=== PATIENT | male | born 1985 | race Two or more races ===

== ENCOUNTER 2020-01-06 22:34 | Emergency (ER) | payer OTHER ==
[~2020-01-06] VITALS: Ht 167.6 cm; Wt 68.0 kg
[2020-01-06] MEDS ORDERED: LORazepam Inj 2mg/ml 1ml IV ONE (22:45)
[2020-01-06 22:46] VITALS: BP 150/100
--- NOTE | 2020-01-06 22:46 | NUR ---
ED Nurse Note: pt neyda from [place] with [employer] CO t umping off roof of [facility] story building in an attempt to harm himself. Pt states he hurt his right leg but denies any pain. No visible injury noted upon inspection. Pt VS elevated, ERMD aware. [employer] states pt has previous hx of schizophrenia. Pt states that he takes medication but could only remember Abilify 15mg. ERMD at bedside. Pt in bed, placed in gown. Will continue to monitor. Addendum: 01/07/20 at 0025 by [email or web address] ED Nurse Note: pt neyda from [place] with [employer] CO t umping off roof of [facility] story building in an attempt to harm himself. Pt states he hurt his right leg but denies any pain. No visible injury noted upon inspection. Pt VS elevated, ERMD aware. [employer] states pt has previous hx of schizophrenia. Pt states that he takes medication but could only remember Abilify 15mg. ERMD at bedside. Pt in bed, placed in gown. Will continue to monitor. Pt on 5150 hold per [employer]. Pt belongings placed in Locker #3
--- NOTE | 2020-01-06 22:50 | NUR ---
ED Nurse Note: IV initiated, blood drawn and sent to lab. UA sent to lab. Pt received all medications, tolerated well. no ss of distress noted. No adverse reactions noted.
--- NOTE | 2020-01-06 23:00 | NUR ---
ED Nurse Note: Sitter requested. Nurs. Sup. informed. safety precautions initiated.
[2020-01-06 23:30] LABS: BASOPHILS % (AUTO) 0.9 % (0.0-2.0); EOSINOPHILS % (AUTO) 0.1 % (0.0-3.0); HEMATOCRIT 49.2 % (42.0-52.0); HEMOGLOBIN 15.7 G/DL (14.2-18.0); LYMPHOCYTES % (AUTO) 12.7 % (20.0-45.0); MEAN CORPUSCULAR VOLUME 93 FL (80-99); MONOCYTES % (AUTO) 5.7 % (1.0-10.0); NEUTROPHILS % (AUTO) 80.6 % (45.0-75.0); PLATELET COUNT 330 K/UL (150-450); RED BLOOD COUNT 5.27 M/UL (4.70-6.10); RED CELL DISTRIBUTION WIDTH 12.9 % (11.6-14.8); WHITE BLOOD COUNT 13.6 K/UL (4.8-10.8)
[2020-01-06 23:45] LABS: ANION GAP 13 mmol/L (5-15); BLOOD UREA NITROGEN 8 mg/dL (7-18); CALCIUM 9.3 MG/DL (8.5-10.1); CARBON DIOXIDE 25 MMOL/L (21-32); CHLORIDE 102 MMOL/L (98-107); CREATININE 0.9 MG/DL (0.55-1.30); POTASSIUM 3.8 MMOL/L (3.5-5.1); SODIUM 140 MMOL/L (136-145)
[2020-01-06 23:50] LABS: ALANINE AMINOTRANSFERASE 97 U/L (12-78); ALBUMIN 4.3 G/DL (3.4-5.0); ALBUMIN/GLOBULIN RATIO 1.1 (1.0-2.7); ALKALINE PHOSPHATASE 145 U/L (46-116); ASPARTATE AMINO TRANSFERASE 36 U/L (15-37); BILIRUBIN,TOTAL 0.5 MG/DL (0.2-1.0); CREATINE KINASE 290 U/L (26-308)
--- NOTE | 2020-01-06 23:50 | NUR ---
ED Nurse Note: Pt sleeping in bed. VSS. no ss of distress noted.
[2020-01-07] VITALS (7 sets, daily range): BP systolic 113–136; BP diastolic 71–79
--- NOTE | 2020-01-07 | NUR ---
ED Nurse Note: Pt sleeping in bed, no ss of distress noted. VSS. safety precautions in place. will continue to monitor.
--- NOTE | 2020-01-07 01:00 | NUR ---
ED Nurse Note: Pt sleeping in bed, no ss of distress noted. VSS. safety precautions in place. will continue to monitor.
--- NOTE | 2020-01-07 02:00 | NUR ---
ED Nurse Note: Pt sleeping in bed, no ss of distress noted. VSS. safety precautions in place. will continue to monitor.
--- NOTE | 2020-01-07 02:15 | Emergency Room Report ---
History of Present Illness General Chief Complaint: Behavioral Complaint Source: Patient Present Illness HPI Patient is a 34-year-old male who presents after increased agitation and suicidal thoughts. Previous history of methamphetamine abuse. Patient was brought in by EMS with [employer]. Reportedly had increased thoughts of harming himself. Previous history of a suicide attempt. Patient reportedly with wanted to jump in front of a car. Patient reportedly had recent methamphetamine use. Allergies: Coded Allergies: No Known Allergies (Unverified , 01/06/20) COVID-19 Screening COVID-19 risk:Contact w/high r: No COVID-19 risk:Travel to affect: No Has patient experienced tate: No COVID-19 Testing performed D[employer]ING CONSULTANT: No Patient History Past Medical History: see triage record Reviewed Nursing Documentation: PMH: Agreed; PSxH: Agreed Nursing Documentation-PMH Past Medical History: No Stated History Review of Systems All Other Systems: negative except mentioned in HPI Physical Exam Vital Signs Date Time Temp Pulse Resp B/P (MAP) Pulse Ox O2 Delivery O2 Flow Rate FiO2 01/06/20 22:36 98.1 130 18 150/100 (117) 100 Room Air Sp02 EP Interpretation: reviewed, normal General Appearance: alert/responsive, no apparent distress, GCS 15, non-toxic Head: atraumatic Eyes: PERRL, lids + conjunctiva normal ENT: hearing intact, no angioedema Neck: supple/symm/no masses, no meningismus Respiratory: effort normal, no wheezing, chest symmetrical Cardiovascular: normal inspection, regular rate, rhythm, no edema Cardiovascular #2: 2+ carotid (R), 2+ carotid (L), 2+ dorsalis pedis (R), 2+ dorsalis pedis (L) Gastrointestinal: non-tender, no mass, non-distended, no rebound/guarding, normal bowel sounds Musculoskeletal: gait & station normal, normal ROM, strength & tone normal, non -tender Neurologic: oriented x3, sensory intact, normal speech Skin: no rash, well hydrated Lymphatic: normal inspection Medical Decision Making Diagnostic Impression: Primary Impression: Methamphetamine abuse Additional Impression: Suicidal overdose ER Course Patient present for suicidal thoughts. Differential diagnosis includes not limited to psychosis, substance abuse, depression, bipolar disorder among others. Because of complexity of patient's case laboratory tests were ordered. Was noted to be initially agitated and was given he was noted to have improvement in his agitation he was also given IV fluids and Ativan. Heart rate was noted to have improved over time. Patient is medically cleared for psychiatric evaluation and treatment. urine drug screen did show positive for marijuana as well as amphetamine. Patient was placed on 5150 by [employer]. Labs Test 01/06/20 22:56 White Blood Count 13.6 K/UL (4.8-10.8) Red Blood Count 5.27 M/UL (4.70-6.10) Hemoglobin 15.7 G/DL (14.2-18.0) Hematocrit 49.2 % (42.0-52.0) Mean Corpuscular Volume 93 FL (80-99) Mean Corpuscular Hemoglobin 29.8 PG (27.0-31.0) Mean Corpuscular Hemoglobin Concent 31.9 G/DL (32.0-36.0) Red Cell Distribution Width 12.9 % (11.6-14.8) Platelet Count 330 K/UL (150-450) Mean Platelet Volume 10.0 FL (6.5-10.1) Neutrophils (%) (Auto) 80.6 % (45.0-75.0) Lymphocytes (%) (Auto) 12.7 % (20.0-45.0) Monocytes (%) (Auto) 5.7 % (1.0-10.0) Eosinophils (%) (Auto) 0.1 % (0.0-3.0) Basophils (%) (Auto) 0.9 % (0.0-2.0) Sodium Level 140 MMOL/L (136-145) Potassium Level 3.8 MMOL/L (3.5-5.1) Chloride Level 102 MMOL/L (98-107) Carbon Dioxide Level 25 MMOL/L (21-32) Anion Gap 13 mmol/L (5-15) Blood Urea Nitrogen 8 mg/dL (7-18) Creatinine 0.9 MG/DL (0.55-1.30) Estimat Glomerular Filtration Rate > 60 mL/min (>60) Glucose Level 90 MG/DL (74-106) Calcium Level 9.3 MG/DL (8.5-10.1) Total Bilirubin 0.5 MG/DL (0.2-1.0) Aspartate Amino Transf (AST/SGOT) 36 U/L (15-37) Alanine Aminotransferase (ALT/SGPT) 97 U/L (12-78) Alkaline Phosphatase 145 U/L (46-116) Total Creatine Kinase 290 U/L (26-308) Total Protein 8.3 G/DL (6.4-8.2) Albumin 4.3 G/DL (3.4-5.0) Globulin 4.0 g/dL Albumin/Globulin Ratio 1.1 (1.0-2.7) Salicylates Level 4.6 ug/mL (2.8-20) Urine Opiates Screen Negative (NEGATIVE) Acetaminophen Level < 2 MCG/ML (10-30) Urine Barbiturates Screen Negative (NEGATIVE) Phencyclidine (PCP) Screen Negative (NEGATIVE) Urine Amphetamines Screen Positive (NEGATIVE) Urine Benzodiazepines Screen Negative (NEGATIVE) Urine Cocaine Screen Negative (NEGATIVE) Urine Marijuana (THC) Screen Positive (NEGATIVE) Serum Alcohol < 3 mg/dL Last Vital Signs Date Time Temp Pulse Resp B/P (MAP) Pulse Ox O2 Delivery O2 Flow Rate FiO2 01/07/20 00:24 98.1 102 14 113/71 100 Room Air Status: improved Disposition: PSYCH HOSP/UNIT Condition: Stable Referrals: NOT CHOSEN IPA/,REFERRING (PCP) Allan Peterson MD January 07, 2020 02:14
[2020-01-07] MEDS ORDERED: ZYPREXA10 MG ORAL (02:42)
[2020-01-07] MEDS ORDERED: REMERON30 MG ORAL (02:42)
--- NOTE | 2020-01-07 03:00 | NUR ---
ED Nurse Note: Pt sleeping in bed, no ss of distress noted. VSS. safety precautions in place. will continue to monitor.
--- NOTE | 2020-01-07 03:16 | NUR ---
ED Nurse Note: all medications administered. Pt tolerated well. no ss of distress noted.
--- NOTE | 2020-01-07 05:25 | NUR ---
ED Nurse Note: Pt sleeping in bed, no ss of distress noted. VSS. safety precautions in place. will continue to monitor.
--- NOTE | 2020-01-07 07:30 | NUR ---
Note edson in EDM - 01/07/20 at 0832 by [email or web address] ED Nurse Note: Pt lying in bed, relaxed. Pt states he still has SI and plan. He is calm and cooperative.
--- NOTE | 2020-01-07 07:30 | NUR ---
ED Nurse Note: Pt lying in bed, relaxed. Pt states he still has SI and plan. He is calm and cooperative.
--- NOTE | 2020-01-07 10:45 | NUR ---
ED Nurse Note: Pt belongings in locker #3.
--- NOTE | 2020-01-07 11:33 | NUR ---
ED Nurse Note: Pt is alert and ox4, lying in bed relaxed. Safety precautions in place. Sitter at bedside.
--- NOTE | 2020-01-07 12:28 | NUR ---
ED Nurse Note: Report given to Ruhci ESCALERA at [facility] facility.
--- NOTE | 2020-01-07 13:19 | NUR ---
ED Nurse Note: [facility] arrived, pt was then transported to [facility] via [facility] in stable condition. Report given to ambulance personnel. IV line removed.
== END 2020-01-07 13:19 ==
LOC: EDBD 22:34 → EMR 22:51
DX: F15.10 Other stimulant abuse, uncomplicated (principal); R45.851 Suicidal ideations
CPT/HCPCS: 36415; 80053; 80307; 82550; 85025; 96361; 96374; G0480; G0481; J7030; Z7502; 99285